=== PATIENT | male | born 2000 | race Caucasian/White ===

== ENCOUNTER 2019-08-26 19:36 | Emergency (ER) | payer BC ==
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
[2019-08-26 20:42] LABS: ACETAMINOPHEN <2.0 ug/mL; BLOOD UREA NITROGEN,BUN 10 mg/dL (7.0-18.0); CARBON DIOXIDE,CO2 16.9 mmol/L (21.0-32.0); CHLORIDE,CL 101 mmol/L (98-107); GLUCOSE RANDOM 86 mg/dL (74-106); POTASSIUM,K 3.2 mmol/L (3.5-5.1); SODIUM,NA 138 mmol/L (136-148)
== END 2019-08-26 22:58 ==
LOC: MW.ED 19:36
DX: R45.851 Suicidal ideations (principal); R06.4 Hyperventilation
CPT/HCPCS: 36415; 80053; 80305-QW; 80307; 81001; 83735; 84443; 85025; 93005; 99283; 99285-25

== ENCOUNTER 2022-07-02 14:11 | Emergency (ER) | payer BC ==
[2022-07-02] MEDS ORDERED: Sodium Chloride 0.9% 1,000 ML IV ONE ×2 (14:14→15:16)
[2022-07-02] MEDS ORDERED: Sodium Chloride 0.9% 2.5 ML Syringe FLUSH PRN (14:15)
[2022-07-02] MEDS ORDERED: Sodium Chloride 0.9% 10 ML Syringe FLUSH PRN (14:15)
[2022-07-02 15:02] LABS: BLOOD UREA NITROGEN,BUN 16 mg/dL (7.0-18.0); CARBON DIOXIDE,CO2 20.3 mmol/L (21.0-32.0); CHLORIDE,CL 106 mmol/L (98-107); GLUCOSE RANDOM 97 mg/dL (74-106); POTASSIUM,K 2.9 mmol/L (3.5-5.1); SODIUM,NA 141 mmol/L (136-148)
[2022-07-02 15:07] LABS: ESTIMATED GFR 97 mL/min (>60)
[2022-07-02] MEDS ORDERED: Potassium Chloride 100 ML IV SCH (15:15)
[2022-07-02] MEDS ORDERED: Potassium Chloride 20 MEQ Tab.ER PO ONE (15:26)
[2022-07-02] MEDS ORDERED: Sodium Chloride 0.9% 500 ML IV ONE (15:30)
[2022-07-02 19:21] LABS: CARBON DIOXIDE,CO2 20.8 mmol/L (21.0-32.0); POTASSIUM,K 3.7 mmol/L (3.5-5.1)
== END 2022-07-02 20:08 | disposition home or self-care (01) ==
LOC: MW.ED 14:11
DX: F41.9 Anxiety disorder, unspecified (principal); E87.6 Hypokalemia
CPT/HCPCS: 36415; 80048; 80053; 80305; 80307; 81003; 83605; 83735; 85025; 93005; 96361; 96365; 96366; 99284; A9270; J3480; J3490; J7030; J7040